=== PATIENT | female | born 1950 | race African-American/Black ===

== ENCOUNTER 2025-04-09 14:36 | Emergency (ER) | payer SELFPAY ==
[~2025-04-09] VITALS: Ht 167.6 cm; Wt 60.0 kg
[2025-04-09 14:41] VITALS: O2SAT 96
[2025-04-09] MEDS: ACETAMINOPHEN 325MG TABLET PO ONE (16:35)
[2025-04-09] MEDS: CLONIDINE 0.1MG TABLET PO ONE (16:35)
[2025-04-09 17:05] LABS: BASOPHILS % 0.7 % (0.0-2.0); EOSINOPHILS % 1.3 % (0.0-5.0); HEMATOCRIT. 36.1 % (36.0-48.0); HEMOGLOBIN. 11.8 g/dL (12.0-16.0); LYMPHOCYTES % 26.4 % (20.0-50.0); MEAN PLATELET VOLUME 7.2 fl (7.4-10.4); MONOCYTES % 8.3 % (2.0-8.0); NEUTROPHILS % 63.3 % (40.0-76.0); PLATELET 240 x1000/uL (130-400); RED BLOOD CELL COUNT 4.16 mill/uL (4.2-5.4); RED CELL DISTRIBUTION WIDTH 16.1 % (11.6-14.6)
[2025-04-09 17:18] LABS: CREATININE 1.0 mg/dL (0.6-1.0); UREA NITROGEN BLOOD 15 mg/dL (9-23)
[2025-04-09 17:19] LABS: TROPONIN I HIGH SENSITIVITY 8 ng/L (3.0-34)
[2025-04-09] MEDS ORDERED: AMLO5TAB88 MT (18:02)
[2025-04-09 18:25] VITALS: BP 156/86; PULSE 74; RESP 16; TEMP 37.1; O2SAT 98
== END 2025-04-09 18:34 | disposition home or self-care (01) ==
LOC: ER 14:36
DX: I10 Essential (primary) hypertension (principal); R51.9 Headache, unspecified
CPT/HCPCS: 36415; 71045; 80048; 84484; 85025; 93005; 99285